=== PATIENT | female | born 1995 | race Caucasian/White ===

== ENCOUNTER 2025-07-28 20:01 | Emergency (ER) | payer OTHER ==
[~2025-07-28] VITALS: Ht 175.3 cm; Wt 80.0 kg
[2025-07-28] MEDS ORDERED: CYCLOBENZAPRINE5 MG PO (20:15)
[2025-07-28] MEDS ORDERED: IBU800 MG PO (20:16)
[2025-07-28] MEDS ORDERED: KETOROLAC TROMETHAMINE 60 MG/2 ML VIAL IM ONE (21:15)
[2025-07-28] MEDS ORDERED: GABAPENTIN 300 MG CAP PO ONE (21:15)
[2025-07-28] MEDS ORDERED: CYCLOBENZAPRINE HCL 10 MG TAB PO ONE (21:15)
[2025-07-28] MEDS ORDERED: ACETAMINOPHEN 500 MG TAB PO ONE (21:15)
[2025-07-28] MEDS ORDERED: HYDROCODONE/ACETA 7.5/325 TAB PO ONE (23:15)
[2025-07-29] MEDS ORDERED: HYDROCODON-ACE1 EA10 PO (00:34)
[2025-07-29] MEDS ORDERED: PREDNISONE20 MG PO (00:34)
[2025-07-29] MEDS ORDERED: HYDROCODONE BIT/ACETAMINOPHEN 5/325 MG 1 TAB HOME.PACK PO ONE (00:45)
[2025-07-29 01:35] VITALS: BP 124/71
== END 2025-07-29 01:36 | disposition home or self-care (01) ==
LOC: ED 20:01
DX: M54.42 Lumbago with sciatica, left side (principal); M54.41 Lumbago with sciatica, right side; Z79.899 Other long term (current) drug therapy
CPT/HCPCS: 36415; 72131; 84703; 96372; 99284-25; A9270; J1885